=== PATIENT | female | born 1965 | race Caucasian/White ===

== ENCOUNTER 2019-03-15 15:55 | Emergency (ER) | payer BC, OTHER ==
[2019-03-15] MEDS ORDERED: DIPHTH,PERTUSS(ACELL),TET 0.5 ML DISP.SYRIN IM ONE ×2 (15:59→17:09)
--- NOTE | 2019-03-15 15:59 | PDOC ---
Rapid Medical Evaluation Chief Complaint: Injury Time Seen by Provider: 03/15/19 15:57 Medical Evaluation: Allergies Allergy/AdvReac Type Severity Reaction Status Date / Time No Known Allergies Allergy Verified 03/15/19 15:58 03/15/19 15:58 CC: lac to left hand sustained with box toe flanger stitchdowns PE: superficial 1.5cm linear lac to dorsum of left thumb and left index finger Orders: Td Patient will proceed to ED for further evaluation. Discharge Disposition - Diagnosis Laceration - Referrals - Patient Instructions - Post Discharge Activity
[2019-03-15 16:00] VITALS: BP 141/55; PULSE 88; TEMP 98.5; BMI 25.6
--- NOTE | 2019-03-15 17:26 | PDOC ---
History of Present Illness - General Chief Complaint: Injury Stated Complaint: HAND INJURY Time Seen by Provider: 03/15/19 15:57 History Source: Patient Exam Limitations: No Limitations - History of Present Illness Initial Comments: 03/15/19 17:31 Chief complaint: Hand laceration Patient is a healthy 53-year-old female who states she was cutting a branch when the knife slipped and cut her left hand, she sustained 2 lacerations one on the proximal dorsal thumb and the second on the dorsum of the hand proximal to the second and third fingers. Patient has no numbness. Patient does not know when her last tetanus shot was. GENERAL/CONSTITUTIONAL: No fever, weakness. dizziness HEAD, EYES, EARS, NOSE AND THROAT: No change in vision. No ear pain or discharge. No sore throat. CARDIOVASCULAR: No chest pain RESPIRATORY: No shortness of breath or cough GASTROINTESTINAL: No pain, nausea, vomiting, diarrhea or constipation GENITOURINARY: No dysuria MUSCULOSKELETAL: No neck or back pain SKIN: No rash, + laceration NEUROLOGIC: No headache, vertigo, loss of consciousness, or loss of sensation. GENERAL: The patient is awake, alert, and fully oriented, in no acute distress. HEAD: Normal with no signs of trauma. EYES: Pupils equal, round and reactive to light, sclera anicteric, conjunctiva clear. ENT: pharynx: no erythema, no exudate, uvula midline NECK: supple CHEST: clear, nontender, rr EXTREMITIES: Left hand with 1.5 cm laceration on the proximal dorsum of the thumb, full range of motion, no signs of tendon or bony injury, neurovascular intact. 2 cm laceration on the dorsum of the left hand approximate to the second and third digits, superficial. Left hand with full range of motion, neurovascular intact. Rest of extremities, normal range of motion, no edema. NEUROLOGICAL: Normal speech, normal gait. SKIN: Warm, Dry Past History - Past Medical History Allergies/Adverse Reactions: Allergies Allergy/AdvReac Type Severity Reaction Status Date / Time No Known Allergies Allergy Verified 03/15/19 15:58 Home Medications: Ambulatory Orders No Home Medications 0 dose .ROUTE UTDICT 05/19/12 COPD: No - Immunization History Immunization Up to Date: Yes - Psycho Social/Smoking Cessation Hx Smoking Status: No Smoking History: Never smoked Number of Cigarettes Smoked Daily: 0 Hx Alcohol Use: No Drug/Substance Use Hx: No *Physical Exam - Vital Signs Last Vital Signs Temp Pulse Resp BP Pulse Ox 98.5 F 88 17 141/55 L 98 03/15/19 15:58 03/15/19 15:58 03/15/19 15:58 03/15/19 15:58 03/15/19 15:58 Procedures - Laceration/Wound Repair Left Dorsal Hand Wound Length: to 2.5 cm Wound Explored: clean Wound's Depth, Shape: superficial, linear Irrigated w/ Saline: Yes Betadine Prep: Yes Anesthesia: 2% Lidocaine Wound Repaired With: Sutures Suture Size/Type: 5:0, nylon Number of Sutures: 4 Layer Closure: No Left Dorsal 1st digit Wound Length: to 2.5 cm Wound Explored: clean Wound's Depth, Shape: superficial, linear Irrigated w/ Saline: Yes Betadine Prep: Yes Anesthesia: 2% Lidocaine Wound Repaired With: Sutures Suture Size/Type: 5:0, nylon Number of Sutures: 4 Layer Closure: No ED Treatment Course - Medications Given in the ED: ED Medications Discontinued Medications Generic Name Dose Route Start Last Admin Trade Name Isaias PRN Reason Stop Dose Admin Diphtheria/Tetanus/Acell Pertussis 0.5 ml 03/15/19 15:59 03/15/19 17:12 Boostrix - IM 03/15/19 16:00 0.5 ml .ONCE ONE Administration Medical Decision Making - Medical Decision Making 03/15/19 17:37 53-year-old healthy female with laceration x2 to the dorsum of the left hand, no tendon involvement, no bony involvement. Patient is not up-to-date with tetanus. Will give tetanus, repair lacerations. Discussed issues, findings, results, applicable medications and treatments and follow-up. All these were understood and all questions were answered Discharge - Discharge Information Problems reviewed: Yes Clinical Impression/Diagnosis: Laceration Condition: Stable Disposition: HOME - Admission No - Additional Discharge Information Prescription Drug Monitoring Program (I-STOP) results: I-STOP not reviewed - Follow up/Referral Referrals: Armen Dc MD [Primary Care Provider] - - Patient Discharge Instructions Patient Printed Discharge Instructions: DI for Laceration Repair Additional Instructions: Do not get wet for 2 days. Apply bacitracin several times a day. After this you can gently clean it with soap and water and apply bacitracin at least 2 times daily. Have reevaluated if redness, pus or getting worse. Have sutures evaluated for removal in 7-10 days - Post Discharge Activity
== END 2019-03-15 17:48 | disposition home or self-care (01) ==
LOC: JERFT 15:55
PROC: 3E0234Z Introduction of Serum, Toxoid and Vaccine into Muscle, Percutaneous Approach (ICD-10-PCS; principal; 2019-03-15)
PROC: 0HQGXZZ Repair Left Hand Skin, External Approach (ICD-10-PCS; 2019-03-15)
DX: S61.012A Laceration without foreign body of left thumb without damage to nail, initial encounter (principal); S61.211A Laceration without foreign body of left index finger without damage to nail, initial encounter; W26.0XXA Contact with knife, initial encounter; Y93.89 Activity, other specified; Y92.89 Other specified places as the place of occurrence of the external cause; Y99.8 Other external cause status
CPT/HCPCS: 90715; 99281-25

== ENCOUNTER 2019-03-23 14:46 | Emergency (ER) | payer OTHER ==
[2019-03-23 14:49] VITALS: BP 131/50; PULSE 74; TEMP 98.3; BMI 25.6
--- NOTE | 2019-03-23 15:11 | PDOC ---
Suture Removal/Wound Check HPI - History of Present Illness Chief Complaint: Suture/Staple Removal(Here) Stated Complaint: REMOVE STITCHES Time Seen by Provider: 03/23/19 14:47 History Source: Yes: Patient Exam Limitations: Yes: No Limitations Treated at: [facility] ED - Previous ED Treatment Type of procedure performed on last visit: Yes: Laceration Repair Tetanus Immunization: Yes: Up to Date Antibiotics Prescribed: No Past History - Travel Traveled outside of the country in the last 30 days: No - Past Medical History Allergies/Adverse Reactions: Allergies Allergy/AdvReac Type Severity Reaction Status Date / Time No Known Allergies Allergy Verified 03/15/19 15:58 Home Medications: Ambulatory Orders No Home Medications 0 dose .ROUTE UTDICT 05/19/12 COPD: No - Immunization History Immunization Up to Date: Yes - Psycho Social/Smoking Cessation Hx Smoking Status: No Smoking History: Never smoked Number of Cigarettes Smoked Daily: 0 Hx Alcohol Use: No Drug/Substance Use Hx: No Patient Lives Alone: No Lives with/in: spouse/SO Suture Removal/Wound Check PE - Physical Exam Laceration/Wound Check Symptoms: reports: None Current Severity Level: None Maximum Severity Level: None Pain Localization: None Location of Laceration/Wound: left: Hand Pain Radiation: None *Review of Systems - Review of Systems Able to Perform ROS?: Yes Constitutional: No: Symptoms Reported Musculoskeletal: No: Symptoms Reported Integumentary: No: Symptoms Reported Neurological: No: Symptoms reported *Physical Exam - Vital Signs Last Vital Signs Temp Pulse Resp BP Pulse Ox 98.3 F 74 14 131/50 L 99 03/23/19 14:48 03/23/19 14:48 03/23/19 14:48 03/23/19 14:48 03/23/19 14:48 - Physical Exam General Appearance: Yes: Nourished, Appropriately Dressed. No: Apparent Distress Integumentary: positive: Normal Color, Warm, Moist Medical Decision Making - Medical Decision Making 03/23/19 15:13 removed 8 sutures from left hand using 11 blade without difficulty. Surrounding skin intact. Bacitracin and bandaid applied Discharge - Discharge Information Problems reviewed: Yes Clinical Impression/Diagnosis: Visit for suture removal Condition: Improved Disposition: HOME - Follow up/Referral - Patient Discharge Instructions Patient Printed Discharge Instructions: DI for Suture Removal Additional Instructions: Keep covered for 2 days during the day and put bactracin but remove bandaid at night - Post Discharge Activity
== END 2019-03-23 15:23 | disposition home or self-care (01) ==
LOC: JERFT 14:46
DX: Z48.02 Encounter for removal of sutures (principal)
CPT/HCPCS: 99281-25